=== PATIENT | female | born 2000 | race Caucasian/White ===

== ENCOUNTER 2018-09-09 07:28 | Emergency (ER) | payer SELFPAY ==
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
[2018-09-09] MEDS ORDERED: Lidocaine 5% Patch TD STA (08:03)
[2018-09-09] MEDS ORDERED: Lidocaine 5% Patch TD ONE (08:10)
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
--- NOTE | 2018-09-09 10:54 | RAD ---
Date of service: 09/09/2018 PROCEDURE: Cervical Spine Radiographs. HISTORY: Pain. COMPARISON: None available. FINDINGS: BONES: Straightening of the normal cervical lordosis may be related to muscle spasm or positioning. Alignment maintained. No acute displaced fracture identified. Dens tip partially obscured. DISC SPACES: Unremarkable. SOFT TISSUES: Unremarkable. No prevertebral soft tissue swelling. OTHER FINDINGS: None. IMPRESSION: Straightening of the normal cervical lordosis may be related to muscle spasm or positioning. Dens tip partially obscured. No acute displaced fracture identified.
[2018-09-09 11:25] VITALS: BP 106/72; PULSE 74; RESP 16; TEMP 98.2
[2018-09-09 13:10] VITALS: O2SAT 100
== END 2018-09-09 11:24 | disposition home or self-care (01) ==
LOC: C.ER 07:28
DX: S13.4XXA Sprain of ligaments of cervical spine, initial encounter (principal); S43.401A Unspecified sprain of right shoulder joint, initial encounter; V43.62XA Car passenger injured in collision with other type car in traffic accident, initial encounter

== ENCOUNTER 2018-11-21 13:20 | Emergency (ER) | payer SELFPAY ==
[2018-11-21 13:43] VITALS: RESP 18; O2SAT 100
[2018-11-21 15:19] LABS: BASO % 0.4 % (0.0-2.0); EOS # 0.1 K/uL (0.0-0.7); EOS % 0.9 % (0.0-4.0); HEMOGLOBIN 12.9 g/dL (11.0-16.0); LYMPH # 1.2 K/uL (1.0-4.3); LYMPH % 21.2 % (20.0-40.0); MEAN CELL VOLUME 85.5 fL (81.0-99.0); MEAN CORPUSCULAR HEMOGLOBIN 29.5 pg (27.0-31.0); MEAN CORPUSCULAR HGB CONC 34.5 g/dL (33.0-37.0); MEAN PLATELET VOLUME 6.9 fL (7.2-11.7); MONO # 0.4 K/uL (0.0-0.8); MONO % 6.5 % (0.0-10.0); RBC 4.38 Mil/uL (3.80-5.20); RED CELL DISTRIBUTION WIDTH 12.5 % (11.5-14.5); WHITE BLOOD COUNT 5.6 K/uL (4.8-10.8)
[2018-11-21 15:24] LABS: URINE CLARITY Clear (Clear); URINE COLOR YELLOW (YELLOW)
[2018-11-21 15:25] LABS: HCG,QUALITATIVE URINE NEGATIVE (NEGATIVE); PH,URINE 7.5 (5.0-8.0); SQUAMOUS EPITHIAL 2 /hpf (0-5); URINE BILIRUBIN NEGATIVE (NEGATIVE); URINE BLOOD NEGATIVE (NEGATIVE); URINE GLUCOSE (UA) Normal (Normal); URINE LEUKOCYTE ESTERASE Negative Leu/uL (Negative); URINE PROTEIN NEGATIVE (NEGATIVE); URINE UROBILINOGEN 0.2 mg/dL (0.2-1.0)
[2018-11-21 15:32] LABS: ALB/GLOB RATIO 1.6 (1.0-2.1); ALBUMIN 4.8 g/dL (3.5-5.0); ALT/SGPT 17 U/L (9-52); AST/SGOT 26 U/L (14-36); BLOOD UREA NITROGEN 7 mg/dL (7-17); CALCIUM 10.1 mg/dl (8.6-10.4); GFR NON-AFRICAN AMERICAN > 60; LIPASE 66 U/L (23-300)
--- NOTE | 2018-11-21 16:23 | C.PDOC ---
History Of Present Illness 18y/o female presents to the ED for evaluation of right lower quadrant abdominal pain since yesterday. Patient denies nausea, vomiting, possibility of . Time Seen by Provider: 11/21/18 14:01 Chief Complaint (Nursing): Abdominal Pain History Per: Patient History/Exam Limitations: no limitations Onset/Duration Of Symptoms: Hrs Current Symptoms Are (Timing): Still Present Location Of Pain/Discomfort: RLQ Radiation Of Pain To:: None Quality Of Discomfort: "Pain" Associated Symptoms: denies: Fever, Chills, Nausea, Vomiting Past Medical History Reviewed: Historical Data, Nursing Documentation, Vital Signs Vital Signs: Last Vital Signs Temp 98.1 F 11/21/18 13:41 Pulse 82 11/21/18 13:41 Resp 18 11/21/18 13:41 BP 118/66 11/21/18 13:41 Pulse Ox 100 11/21/18 13:41 - Medical History PMH: No Chronic Diseases Surgical History: No Surg Hx Family History: States: Unknown Family Hx - Social History Hx Alcohol Use: No Hx Substance Use: No - Immunization History Hx Tetanus Toxoid Vaccination: No Hx Influenza Vaccination: No Hx Pneumococcal Vaccination: No Review Of Systems Constitutional: Negative for: Fever, Chills Gastrointestinal: Positive for: Abdominal Pain (right lower quadrant ). Negative for: Nausea, Vomiting Physical Exam - Physical Exam Appears: Non-toxic, No Acute Distress Skin: Normal Color, Warm, Dry Head: Atraumatic, Normacephalic Eye(s): bilateral: Normal Inspection Oral Mucosa: Moist Neck: Supple Chest: Symmetrical, No Deformity, No Tenderness Gastrointestinal/Abdominal: Soft, Tenderness (right lower quadrant ), No Guarding, No Rebound Extremity: Normal ROM, Capillary Refill (less than 2 seconds ) Neurological/Psych: Normal Speech, Normal Cognition ED Course And Treatment - Laboratory Results Result Diagrams: 11/21/18 15:11/21/18 15:09 Lab Results: Total Bilirubin 0.7 mg/dL (0.2-1.3) 11/21/18 15:09 AST 26 U/L (14-36) 11/21/18 15:09 ALT 17 U/L (9-52) 11/21/18 15: Alkaline Phosphatase 76 U/L (38-126) 11/21/18 15: Total Protein 7.9 g/dL (6.3-8.3) 11/21/18 15:09 Albumin 4.8 g/dL (3.5-5.0) 11/21/18 15: Globulin 3.1 gm/dL (2.2-3.9) 11/21/18 15:09 Albumin/Globulin Ratio 1.6 (1.0-2.1) 11/21/18 15: Lipase 66 U/L (23-300) 11/21/18 15:09 Urine Color Yellow (YELLOW) 11/21/18 15:09 Urine Clarity Clear (Clear) 11/21/18 15:09 Urine pH 7.5 (5.0-8.0) 11/21/18 15:09 Ur Specific [place] 1.020 (1.003-1.030) 11/21/18 15:09 Urine Protein Negative mg/dL (NEGATIVE) 11/21/18 15:09 Urine Glucose (UA) Normal mg/dL (Normal) 11/21/18 15:09 Urine Ketones Negative mg/dL (NEGATIVE) 11/21/18 15:09 Urine Blood Negative (NEGATIVE) 11/21/18 15:09 Urine Nitrate Negative (NEGATIVE) 11/21/18 15:09 Urine Bilirubin Negative (NEGATIVE) 11/21/18 15: Urine Urobilinogen 0.2 mg/dL (0.2-1.0) 11/21/18 15:09 Ur Leukocyte Esterase Negative Mikhail/uL (Negative) 11/21/18 15:09 Urine WBC (Auto) 2 /hpf (0-5) 11/21/18 15:09 Urine RBC (Auto) 1 /hpf (0-3) 11/21/18 15:09 Ur Squamous Epith Cells 2 /hpf (0-5) 11/21/18 15:09 Urine HCG, Qual Negative (NEGATIVE) 11/21/18 15:09 Urine HCG, Qual Negative (NEGATIVE) 11/21/18 15:09 Lab Interpretation: Normal (ua neg.) Urine POC: Negative O2 Sat by Pulse Oximetry: 100 Pulse Ox Interpretation: Normal - Radiology CXR: Interpreted by Me CXR Interpretation: Yes: No Acute Disease - Other Rad abd x 2 X-Ray: Interpreted by Me (+FOS, no obst/FA) Progress Note: Urinalysis and Obstructive Series Abdomen ordered and reviewed. Reevaluation Time: 16:50 Reassessment Condition: Improved Medical Decision Making Medical Decision Making: acute on chronic constipation LOW susp of AP Disposition Doctor Will See Patient In The: Office Counseled Patient/Family Regarding: Studies Performed, Diagnosis - Disposition Disposition: HOME/ ROUTINE Disposition Time: 16:50 Condition: GOOD Forms: [facility] ([place]) - Clinical Impression Clinical Impression: Colicky RLQ abdominal pain
--- NOTE | 2018-11-21 16:26 | C.PDOC ---
Time Seen by Provider: 11/21/18 14:01 Chief Complaint (Nursing): Abdominal Pain Past Medical History Vital Signs: Last Vital Signs Temp 98.1 F 11/21/18 13:41 Pulse 82 11/21/18 13:41 Resp 18 11/21/18 13:41 BP 118/66 11/21/18 13:41 Pulse Ox 100 11/21/18 13:41 Family History: States: Unknown Family Hx - Social History Hx Alcohol Use: No Hx Substance Use: No - Immunization History Hx Tetanus Toxoid Vaccination: No Hx Influenza Vaccination: No Hx Pneumococcal Vaccination: No ED Course And Treatment - Laboratory Results Result Diagrams: 11/21/18 15:09 Lab Results: Urine Color Yellow (YELLOW) 11/21/18 15:09 Urine Clarity Clear (Clear) 11/21/18 15:09 Urine pH 7.5 (5.0-8.0) 11/21/18 15:09 Ur Specific [place] 1.020 (1.003-1.030) 11/21/18 15:09 Urine Protein Negative mg/dL (NEGATIVE) 11/21/18 15:09 Urine Glucose (UA) Normal mg/dL (Normal) 11/21/18 15:09 Urine Ketones Negative mg/dL (NEGATIVE) 11/21/18 15:09 Urine Blood Negative (NEGATIVE) 11/21/18 15:09 Urine Nitrate Negative (NEGATIVE) 11/21/18 15:09 Urine Bilirubin Negative (NEGATIVE) 11/21/18 15:09 Urine Urobilinogen 0.2 mg/dL (0.2-1.0) 11/21/18 15:09 Ur Leukocyte Esterase Negative Mikhail/uL (Negative) 11/21/18 15:09 Urine WBC (Auto) 2 /hpf (0-5) 11/21/18 15:09 Urine RBC (Auto) 1 /hpf (0-3) 11/21/18 15:09 Ur Squamous Epith Cells 2 /hpf (0-5) 11/21/18 15:09 Urine HCG, Qual Negative (NEGATIVE) 11/21/18 15:09 Urine HCG, Qual Negative (NEGATIVE) 11/21/18 15:09 O2 Sat by Pulse Oximetry: 100 Disposition - Disposition
[2018-11-21] MEDS ORDERED: Magnesium Citrate Oral SOL (300 ml) PO ONE (16:50)
[2018-11-21] MEDS ORDERED: Magnesium Citrate Oral SOL (300 ml) ONE (17:00)
[2018-11-21 17:09] VITALS: BP 122/64; PULSE 79; TEMP 98.6
--- NOTE | 2018-11-23 10:45 | RAD ---
Date of service: 11/21/2018 PROCEDURE: Radiographs of the chest and abdomen (obstructive series) HISTORY: abd pain, RLQ x 1 day COMPARISON: No prior. TECHNIQUE: AP radiograph of the chest, with upright and supine radiographs of the abdomen. 3 views obtained. FINDINGS: CHEST: Lungs: The lungs are well inflated and clear. Cardiovascular: Normal size heart. No pulmonary vascular congestion. No aortic atherosclerotic calcification present Pleura: No pleural fluid. No pneumothorax. Other findings: None. ABDOMEN AND PELVIS: Bowel: There is moderate amount of stool in the colon. The bowel gas pattern is nonspecific no evidence of mechanical obstruction. Free air: None. Bones: Unremarkable. Other findings: None. IMPRESSION: Constipation. Nonobstructive bowel gas pattern. Clear lungs.
== END 2018-11-21 17:12 | disposition home or self-care (01) ==
LOC: C.ER 13:20
DX: R10.31 Right lower quadrant pain (principal)